=== PATIENT | female | born 1955 | race Caucasian/White ===

== ENCOUNTER 2021-09-23 06:47 | Day surgery (SDC) | payer OTHER ==
[~2021-09-23] VITALS: Ht 129.5 cm; Wt 52.2 kg
[2021-09-23] MEDS ORDERED: fentaNYL citrate 0.05 MG/ML VIAL ONE (07:51)
[2021-09-23] MEDS ORDERED: diphenhydrAMINE 50 MG/ML VIAL ONE (07:51)
[2021-09-23] MEDS ORDERED: MIDAZOLAM 5 MG/5 ML VIAL ONE (07:51)
[2021-09-23] MEDS ORDERED: MIDAZOLAM 2 MG/2 ML VIAL IVP ONE (08:55)
== END 2021-09-23 09:21 | disposition home or self-care (01) ==
LOC: MDS 06:47 → MMU 06:47 → MDS 09:21
PROVIDERS: ATTEND Internal Medicine Gastroenterology
DX: Z12.11 Encounter for screening for malignant neoplasm of colon (principal); I10 Essential (primary) hypertension; Z79.82 Long term (current) use of aspirin; Z20.822 Contact with and (suspected) exposure to COVID-19
CPT/HCPCS: 45378; 87426; J2250; J3010; J1200